=== PATIENT | female | born 1980 | race Caucasian/White ===

== ENCOUNTER 2016-11-02 07:05 | Emergency (ER) | payer BC ==
[~2016-11-02] VITALS: Ht 172.7 cm; Wt 61.5 kg
[~2016-11-02 07:05] MED LIST: ADVIN10/60 INH; ALBUAER2 INH; MTR600X PO; PRENTAB26 PO
[2016-11-02 07:08] VITALS: Ht 172.7 cm; Wt 61.5 kg
[2016-11-02] MEDS ORDERED: MoRPHine SULFATE 10 MG/ML CARP/VIAL IV STA (07:30)
[2016-11-02] MEDS ORDERED: MoRPHine SULFATE 4 MG/ML 1 ML CARP\\VIAL IV PRN (07:30)
[2016-11-02] MEDS ORDERED: SODIUM CHLORIDE 0.9% 1000ML 1,000 ML IV STA (07:30)
[2016-11-02] MEDS ORDERED: ONDANSETRON INJ 2 MG/ML 2 ML VIAL IV STA ×2 (07:30→09:17)
[2016-11-02 07:50] LABS: BASO % 0.2 %; BASO ABS # 0.02 K/uL (0-0.2); COMPLETE YES; EOS % 0.6 %; HEMATOCRIT 40.6 % (37-47); IG% 0.2 %; LYMPH % 17.7 %; LYMPH ABS # 2.32 K/uL (1.2-3.4); MEAN CELL VOLUME 90.4 fL (80-100); MEAN CORPUSCULAR HGB CONC 34.2 g/dl (32-36); MONO % 5.6 %; NEUT % 75.7 %; PLATELET COUNT 180 K/uL (130-400); RED BLOOD COUNT 4.49 M/uL (4.2-5.4); WHITE BLOOD COUNT 13.12 K/uL (4.8-10.8)
[2016-11-02 08:02] LABS: PARTIAL THROMBOPLASTIN RATIO 1.1; PROTHROMBIN TIME (PATIENT) 10.4 SECONDS (9.0-12.0)
[2016-11-02 08:21] LABS: BUN/CREATININE RATIO 9.3 (10-20); CREATININE 0.87 mg/dl (0.60-1.20); POTASSIUM 3.8 mmol/L (3.5-5.1)
[2016-11-02 08:24] LABS: ALB/GLOB RATIO 1.4 (0.9-2)
[2016-11-02 08:29] LABS: CALCIUM 8.9 mg/dl (8.5-10.1)
[2016-11-02 08:56] LABS: URINE APPEARANCE CLEAR (CLEAR); URINE BILIRUBIN NEG (NEG); URINE COLOR YELLOW; URINE NITRITE NEG (NEG); URINE SPECIFIC GRAVITY 1.005 (1.000-1.030); UROBILINOGEN NEG (NEG)
[2016-11-02 09:14] LABS: MANUAL MICROSCOPIC REQUIRED? NO; REVIEW REQ? NO
--- NOTE | 2016-11-02 10:17 | DIAGNOSTIC IMAGING REPORT ---
ULTRASOUND CLINICAL HISTORY: Vaginal bleeding and abdominal pain. Miscarriage. Evaluate for retained products of conception. COMPARISON STUDY: No previous studies for comparison. TECHNIQUE: Transabdominal and transvaginal sonography of the pelvis was performed. FINDINGS: The uterus measures 9.5 x 4.8 x 5.1 cm. The endometrium measures 6 mm in thickness. Note is made of a 2.1 x 1 x 1.6 cm cystic structure within the endometrium of the lower uterine segment with no yolk sac or pole identified. There are low-level echoes within this suspected gestational sac which appears abnormally positioned. The mean sac diameter is 1.58 cm corresponds to an estimated gestational age of 5 weeks and 6 days. The ovaries are sonographically normal. There is no adnexal mass. IMPRESSION: Cystic structure within the endometrium of the lower uterine segment which likely reflects an abnormally positioned gestational sac with a mean sac diameter of 1.58 cm which corresponds to an estimated gestational age of 5 weeks and 6 days. No yolk sac or pole identified. The findings remain nonspecific and could reflect a normal early intrauterine gestation. However, the findings are likely abnormal and suggest an in progress. Clinical follow-up, including serial hCG levels, is recommended. Electronically signed by: Sandoval Ruiz M.D. 11/02/2016 10:16 AM Dictated Date/Time: 11/02/2016 10:09 AM
[2016-11-02] MEDS ORDERED: HYDR-5688 PO (10:32)
[2016-11-02 11:17] VITALS: BP 104/66; PULSE 65; TEMP 36.7; O2SAT 99
--- NOTE | 2016-11-02 17:04 | EMERGENCY ROOM VISIT NOTE ---
ED Visit Note First contact with patient: 07:13 Chief Complaint: Pelvic pain and vaginal bleeding. History of Present Illness: Ms. Barrientos is a 36 year-old white female who ambulates into the ED accompanied by her mother complaining of pelvic pain and vaginal bleeding. Historically patient reports she is 4 and para 2. Her blood type is A positive. She has no EDC for her current . Patient reports she has been having central pelvic cramping and spotting for the last 3 weeks. She was seen by the [facility] DIRECTOR OF LABOR RELATIONS department on October 20 and an ultrasound showed no pole or yolk sac. A gestational sac equivalent to 6 weeks and 2 days. Normal-appearing ovaries and no significant free fluid. On November 01 a repeat ultrasound was performed at the [facility] clinic and showed an empty intrauterine gestational sac without demonstrated growth and subchorionic hemorrhaging concerning for a failed . Patient reports an acute onset of severe pelvic pain and increased vaginal bleeding since 4 AM today, approximately 4 hours ago. She describes her pain as a cramping sensation. Located in the central portion of the pelvis. She rates her discomfort 8/10. Her pain is nonradiating. She has not identified any aggravating or alleviating factors related to the pain. She has not taken any medications for pain prior to arrival at the hospital. Associated with her pain she has noted a significant increase in vaginal bleeding. She reports she has saturated 4 sanitary napkins in the last 4 hours and has passed multiple large clots. Patient denies fevers, chills, sweats, skin eruptions, skin color changes, upper respiratory tract symptoms, shortness of breath, chest pain, nausea, vomiting, diarrhea, constipation, rectal bleeding, black/tarry stools, urinary symptoms, hematuria, back/flank pain. Review of Systems: As noted above in history of present illness. All body systems were reviewed and found to be negative as noted above. Past Medical History: As noted above, asthma, COPD, gastric reflux, anxiety. Current Medications: Medications Dose Route/Sig Max Daily Dose Days Date Category Dose Instructions Fiatt 5MG/325MG (Acetaminophen/Hydrocodone Bitart) Tab 1 Tablet PO Q6H PRN 11/02/16 Rx For Initial Treatment Allergies to Medications: Sulfa. Social History: Patient feels safe in her home environment; she admits to tobacco use and denies alcohol use. Physical Examination: Vital Signs: Date Time Temp Pulse Resp B/P Pulse Ox O2 Delivery O2 Flow Rate FiO2 11/02/16 11:17 36.7 65 18 104/66 99 11/02/16 11:11 65 18 104/66 99 Room Air 11/02/16 10:58 100/61 11/02/16 10:41 57 18 79/50 100 Room Air 91/57 11/02/16 10:14 55 18 90/45 100 Room Air 11/02/16 08:35 61 18 99/59 100 Room Air 11/02/16 07:08 36.7 129 20 146/75 100 Room Air GENERAL: 36-year-old female in moderate distress due to pain, nontoxic-appearing , afebrile and hemodynamically stable. Patient is very anxious and tearful. NEUROLOGICAL: Awake, alert and oriented to person, place and time. Answering questions appropriately and following commands. Normal gait. Good hand eye coordination. SKIN: Warm, dry and pink. No soft tissue eruptions or trauma noted. HEENT: Atraumatic and normocephalic. PERRLA. Sclera white and conjunctiva pink. Oral cavity moist and pink. BACK: No tenderness over the bony spine. No CVA tenderness. THORAX: Lungs sounds are clear to auscultation and equal bilaterally with symmetrical chest wall. HEART: Regular rate and rhythm. No gallops, rubs or murmurs are appreciated. ABDOMEN: Flat, soft and nontender. Positive bowel sounds in all quadrants. No guarding, rigidity or organomegaly. PELVIC: Performed in front of a registered nurse. External genitalia is unremarkable except for dried blood. A visual inspection shows a moderate amount of blood and clots in the posterior vaginal vault. The os is open and there is minimal active bleeding. EXTREMITIES: Moves all extremities well on command and with purpose. All distal neurovascular statuses are intact and equal bilaterally. ED Course: Patient is assessed as noted above. Laboratory Testing: Test 11/02/16 07:37 11/02/16 08:25 Range/Units White Blood Count 13.12 4.8-10.8 K/uL Red Blood Count 4.49 4.2-5.4 M/uL Hemoglobin 13.9 12.0-16.0 g/dL Hematocrit 40.6 37-47 % Mean Corpuscular Volume 90.4 80-100 fL Mean Corpuscular Hemoglobin 31.0 25-34 pg Mean Corpuscular Hemoglobin Concent 34.2 32-36 g/dl Platelet Count 180 130-400 K/uL Mean Platelet Volume 11.0 7.4-10.4 fL Neutrophils (%) (Auto) 75.7 % Lymphocytes (%) (Auto) 17.7 % Monocytes (%) (Auto) 5.6 % Eosinophils (%) (Auto) 0.6 % Basophils (%) (Auto) 0.2 % Neutrophils # (Auto) 9.94 1.4-6.5 K/uL Lymphocytes # (Auto) 2.32 1.2-3.4 K/uL Monocytes # (Auto) 0.73 0.11-0.59 K/uL Eosinophils # (Auto) 0.08 0-0.5 K/uL Basophils # (Auto) 0.02 0-0.2 K/uL RDW Standard Deviation 41.7 36.4-46.3 fL RDW Coefficient of Variation 12.5 11.5-14.5 % Immature Granulocyte % (Auto) 0.2 % Immature Granulocyte # (Auto) 0.03 0.00-0.02 K/uL Prothrombin Time 10.4 9.0-12.0 SECONDS Prothromb Time International Ratio 1.0 0.9-1.1 Activated Partial Thromboplast Time 27.8 21.0-31.0 SECONDS Partial Thromboplastin Ratio 1.1 Sodium Level 142 136-145 mmol/L Potassium Level 3.8 3.5-5.1 mmol/L Chloride Level 109 98-107 mmol/L Carbon Dioxide Level 25 21-32 mmol/L Anion Gap 8.0 3-11 mmol/L Blood Urea Nitrogen 8 7-18 mg/dl Creatinine 0.87 0.60-1.20 mg/dl Est Creatinine Clear Calc Drug Dose 87.6 ml/min Estimated GFR () 100.0 Estimated GFR (Non- 86.3 BUN/Creatinine Ratio 9.3 10-20 Random Glucose 95 70-99 mg/dl Calcium Level 8.9 8.5-10.1 mg/dl Total Bilirubin 0.5 0.2-1 mg/dl Aspartate Amino Transf (AST/SGOT) 11 15-37 U/L Alanine Aminotransferase (ALT/SGPT) 12 12-78 U/L Alkaline Phosphatase 67 45-117 U/L Total Protein 6.8 6.4-8.2 gm/dl Albumin 4.0 3.4-5.0 gm/dl Globulin 2.8 2.5-4.0 gm/dl Albumin/Globulin Ratio 1.4 0.9-2 Human Chorionic Gonadotropin, Quant 6205 mIU/mL Urine Color YELLOW Urine Appearance CLEAR CLEAR Urine pH 7.0 4.5-7.5 Urine Specific [place] 1.005 1.000-1.030 Urine Protein NEG NEG Urine Glucose (UA) NEG NEG Urine Ketones NEG NEG Urine Occult Blood 3+ NEG Urine Nitrite NEG NEG Urine Bilirubin NEG NEG Urine Urobilinogen NEG NEG Urine Leukocyte Esterase NEG NEG Urine WBC (Auto) 0 0-5 /hpf Urine RBC (Auto) >30 0-4 /hpf Urine Hyaline Casts (Auto) 0 0-5 /lpf Urine Epithelial Cells (Auto) 5-10 0-5 /lpf Urine Bacteria (Auto) NEG NEG Ultrasound: Was reviewed by myself and read by the radiologist showing a cystic structure within the endometrium of the lower uterine segment. There was no yolk sac or pole identified. Patient was hydrated with normal saline and she initially received 6 mg of morphine IV and 4 mg of Zofran IV for her symptoms. Patient was reassessed multiple times during her stay in the emergency department. Just prior to her ultrasound patient was given 4 mg of morphine IV for pain and 4 mg of Zofran IV for nausea. Patient's case was reviewed with Dr. Keating; we agreed on diagnostic approach, treatment, disposition and plan. Patient's case was consult with Dr. Joshua [facility] DIRECTOR OF LABOR RELATIONS; he recommended ultrasound to identify endometrium thickness and any retained products an office follow-up tomorrow. A second liter of normal saline was given to the patient because of mild decrease in her blood pressure. Patient was educated about tonight's findings and instructed on her treatment plan; she verbalizes understanding and agreement with this plan. Clinical Impression: Spontaneous . Disposition: Patient discharged home in stable condition accompanied by her ; prior to departure she was reassessed and subjectively reported she was feeling much better and rated her discomfort 2/10. Plan: Patient was placed on a sliding pain medication scale of ibuprofen, acetaminophen and Fiatt; appropriate precautions were discussed concerning the use of narcotics. Patient was encouraged to keep her upcoming appointment with DIRECTOR OF LABOR RELATIONS tomorrow for further evaluation and care. Patient was encouraged to follow-up with personal physician for recheck in 1-2 days. Patient was encouraged return the ED for worsening symptoms, fevers, or any new/ concerning symptoms.
[2016-11-03] MEDS ORDERED: VNTHFA/IN INH (09:15)
[2016-11-03] MEDS ORDERED: HYDR-5688 PO (09:28)
== END 2016-11-02 11:18 | disposition home or self-care (01) ==
LOC: C.EDB 07:07 → C.EDA 11:18
DX: O03.9 Complete or unspecified spontaneous abortion without complication (principal); J45.909 Unspecified asthma, uncomplicated; K21.9 Gastro-esophageal reflux disease without esophagitis; F41.9 Anxiety disorder, unspecified

== ENCOUNTER 2019-01-01 01:28 | Inpatient (IN) ==
[2019-01-01] MEDS ORDERED: OXYTOCIN 30 UNITS/500 ML BAG IV PRN ×2 (02:09→13:22)
[2019-01-01] MEDS: LACTATED RINGER'S 1,000 ML IV PRN ×3 (02:10→10:49)
--- NOTE | 2019-01-01 02:13 | Labor Progress Brief Note ---
Date of Service January 01, 2019 Subjective Current Pain Level(1-10): 9 Patient returns from home with duvall still in place, quintin Q3-6, pain 9/10 and requesting epidural. After arrival to L&D, duvall did fall out while patient in room 3. No LOF. Small bloody show. +FM. Assessment & Plan (1) Post-dates : Duvall out, cervix ripe, patient requesting epidural. Will hold off on pitocin/AROM until epidural provided given patient request. Post-term type: 40-42 weeks gestation Qualified Code(s): O48.0 - Post-term Present on Admission?: Yes Physical Exam Genitourinary: OB Exam Abdomen: + regular contractions (Q3-6min) Manual OB Exam: + cervical dilation 5 cm, + cervical effacement 80% and + station -2 OB Exam Monitor Tracing: + external FHT monitor used and + external uterine monitor used Results & Data Vital Signs (Past 12 Hours) Vital Signs Pulse Resp BP 01/01/19 01:38 18 01/01/19 01:33 85 122/86
[2019-01-01 02:26] LABS: Hematocrit (blood only) 34.8 % (37-47); Hemoglobin 11.6 g/dL (12.0-16.0); Mean Corpuscular Volume 90.9 fL (80-100); Mean Platelet Volume 12.1 fL (7.4-10.4); Platelet Count 194 K/uL (130-400); RDW Coefficient of Variation 13.4 % (11.5-14.5); RDW Standard Deviation 44.2 fL (36.4-46.3); Red Blood Count 3.83 M/uL (4.2-5.4); White Blood Count 18.23 K/uL (4.8-10.8)
[2019-01-01] MEDS ORDERED: ePHEDrine sulfate 50 MG/ML AMP ONE (02:34)
[2019-01-01] MEDS ORDERED: BUPIVACAINE 0.25% 30 ML VIAL ONE (02:34)
[2019-01-01] MEDS ORDERED: fentaNYL citrate 100 MCG/2 ML VIAL ONE (02:35)
[2019-01-01] MEDS ORDERED: fentaNYL 2MCG/ML ROPIV 1.25MG/ML 100 ML BAG EPI ONE (02:35)
[2019-01-01 02:38] LABS: Mean Corpuscular Hgb Conc 33.3 g/dL (32-36)
--- NOTE | 2019-01-01 02:45 | Anesthesiology Consultation ---
Date of Service January 01, 2019 Assessment & Plan (1) Term : Chart Review Chart Review: Acceptable Risk for Labor Epidural History Height/Weight Height: 5 ft 8 in Weight: 71.668 kg Allergies Allergy/AdvReac Type Severity Reaction Status Date / Time Sulfa (Sulfonamide Allergy Intermediate HIVES Verified 12/31/18 19:36 Antibiotics) Medications Home Medications Medication Instructions Recorded Confirmed Last Taken PNV cmb#95-ferrous fumarate-FA 1 tab PO DAILY 12/25/18 12/31/18 12/31/18 08:00 [] albuterol sulfate [ProAir HFA] 2 puff INHALATION AMPM PRN 12/25/18 12/31/18 12/22/18 Past Medical History Medical History Asthma (Chronic) with 39 completed weeks gestation Uterine contractions Past Family History Family History Grandfather (Maternal) Myocardial infarction Past Surgical History Surgical History History of tooth extraction Social History Smoking Status: Current some day smoker tobacco type: cigarettes Smoking cigarettes per day: 6 Do You Dip or Chew Tobacco: No Hx Alcohol Use: No Hx Substance Use: No substance use type: does not use Physical Exam Vital Signs Last Vital Signs Pulse 74 01/01/19 02:39 Resp 18 01/01/19 01:38 BP 122/86 01/01/19 01:33 Pulse Ox 95 01/01/19 02:39 Testing Laboratory Results 01/01/19 02:16
[2019-01-01] MEDS ORDERED: NALOXONE HCL 0.4 MG/1 ML VIAL/CARP IV PRN (03:26)
[2019-01-01] MEDS ORDERED: ONDANSETRON INJ 2 MG/ML 2 ML VIAL IV PRN (03:26)
[2019-01-01] MEDS ORDERED: NALOXONE HCL 1 MG in SODIUM CHLORIDE 0.9% 1000ML 1,000 ML IV PRN (03:26)
[2019-01-01] MEDS ORDERED: fentaNYL 2MCG/ML ROPIV 1.25MG/ML 100 ML BAG EPI PRN (03:26)
[2019-01-01] MEDS: ePHEDrine sulfate 50 MG/ML AMP IV PRN ×2 (03:35→03:40)
--- NOTE | 2019-01-01 07:14 | Labor Progress Brief Note ---
Date of Service January 01, 2019 Subjective Reason For Note: Routine Evaluation Comfortable with Epidural Assessment & Plan (1) Post-dates : Patient has made significant cervical change without pitocin, and at this point I am not sure it's needed. AROM completed. Will see if change continues and can add pitocin if not. Post-term type: 40-42 weeks gestation Qualified Code(s): O48.0 - Post-term Present on Admission?: Yes Physical Exam Genitourinary: Manual OB Exam: + cervical dilation 8 cm, + cervical effacement 90%, + station 0 and + amniotic fluid (AROM complete, head very well applied, no visible fluid drainage.) OB Exam Monitor Tracing: + external uterine monitor used (Q6min. Pitocin was not started despite order; progress ongoing anyway.) and + category I Results & Data Vital Signs (Past 12 Hours) Vital Signs Temp Pulse Resp BP Pulse Ox 01/01/19 07:04 78 100 01/01/19 06:59 82 107/60 100 01/01/19 06:54 77 100 01/01/19 06:49 73 100 01/01/19 06:44 75 106/60 100 01/01/19 06:39 79 100 01/01/19 06:34 81 100 01/01/19 06:29 74 101/57 L 100 01/01/19 06:24 76 100 01/01/19 06:19 74 100 01/01/19 06:14 79 108/61 100 01/01/19 06:09 76 100 01/01/19 06:04 80 100 01/01/19 06:00 18 01/01/19 05:59 74 106/58 L 100 01/01/19 05:54 76 100 01/01/19 05:49 79 100 01/01/19 05:44 82 105/60 100 01/01/19 05:39 79 97 01/01/19 05:34 76 100 01/01/19 05:31 18 01/01/19 05:30 74 107/55 L 01/01/19 05:29 77 100 01/01/19 05:24 81 100 01/01/19 05:19 85 99 01/01/19 05:14 74 110/60 99 01/01/19 05:09 80 98 01/01/19 05:04 74 99 01/01/19 04:59 77 110/61 99 01/01/19 04:54 73 99 01/01/19 04:49 77 99 01/01/19 04:44 87 102/59 L 100 01/01/19 04:39 69 99 01/01/19 04:34 77 99 01/01/19 04:29 78 108/60 99 01/01/19 04:24 81 100 01/01/19 04:19 69 98 01/01/19 04:15 68 111/60 01/01/19 04:14 69 99 01/01/19 04:09 77 99 01/01/19 04:04 81 98 01/01/19 04:00 16 01/01/19 03:59 82 98 01/01/19 03:58 72 115/58 L 01/01/19 03:56 87 105/59 L 01/01/19 03:54 90 109/61 100 01/01/19 03:52 80 114/61 01/01/19 03:51 73 94 01/01/19 03:50 94 H 109/59 L 01/01/19 03:49 89 97 01/01/19 03:48 71 115/63 01/01/19 03:46 96 H 109/56 L 01/01/19 03:45 18 01/01/19 03:44 88 116/63 94 01/01/19 03:43 76 94 01/01/19 03:41 76 114/69 01/01/19 03:40 79 20 110/64 01/01/19 03:39 74 108/61 98 01/01/19 03:38 102 H 88/50 L 01/01/19 03:37 86 89/51 L 01/01/19 03:36 73 90/55 L 01/01/19 03:35 80 20 67/39 L 01/01/19 03:34 94 H 100 01/01/19 03:30 36.4 C L 18 01/01/19 03:29 103 H 97 01/01/19 03:28 86 98/58 L 01/01/19 03:26 85 99/60 L 01/01/19 03:25 18 01/01/19 03:24 84 99/58 L 96 01/01/19 03:22 80 106/66 01/01/19 03:20 82 18 100/63 06/26/19 03:19 77 96 01/01/19 03:18 68 104/65 01/01/19 03:16 77 112/61 01/01/19 03:14 83 97 01/01/19 03:09 86 99 01/01/19 03:04 81 99 01/01/19 02:59 90 100 01/01/19 02:54 83 100 01/01/19 02:49 72 100 01/01/19 02:44 78 93 01/01/19 02:39 74 95 01/01/19 02:00 36.8 C 18 01/01/19 01:38 18 01/01/19 01:33 85 122/86
[2019-01-01] MEDS: OXYTOCIN 30 UNITS/500 ML BAG IV PRN ×2 (12:17→13:00)
[2019-01-01] MEDS ORDERED: OXYCODONE/ACETAMINOPHEN 5mg/325mg TAB PO PRN (12:59)
[2019-01-01 13:15] LABS: Hematocrit (blood only) 32.2 % (37-47); Hemoglobin 10.7 g/dL (12.0-16.0)
[2019-01-01] MEDS: IBUPROFEN 600 MG TAB PO PRN ×2 (13:16→19:32)
[2019-01-01] MEDS ORDERED: DIPHTHERIA/TETANUS/PERTUSSIS 0.5 ML SYR/VIAL IM ONE (13:22)
[2019-01-01] MEDS ORDERED: BENZOCAINE 20% AER SPR 82.5 GM CAN EXT PRN (13:22)
[2019-01-01] MEDS ORDERED: HYDROCORTISONE ACETATE 25 MG SUPP PR PRN (13:22)
[2019-01-01] MEDS ORDERED: SUPERCREAM 0.870% 15 GM JAR EXT PRN (13:22)
[2019-01-01] MEDS ORDERED: ALBUTEROL HFA 8 GM INHALER INH PRN (13:30)
--- NOTE | 2019-01-01 14:22 | Anesthesia Procedure Note ---
Date of Service January 01, 2019 Anesthesia Post Epidural Note Vital Signs Vital Signs: Temp Pulse Resp BP Pulse Ox 36.5 C 76 18 115/61 97 01/01/19 13:30 01/01/19 14:14 01/01/19 13:30 01/01/19 14:14 01/01/19 11:44 Pain Intensity Lower Back: Pain Intensity: 8 Notes Mental Status: alert / awake / arousable Nausea / Vomiting: adequately controlled Pain: adequately controlled Airway Patency, RR, SpO2: stable & adequate BP & HR: stable & adequate Hydration State: stable & adequate Neuraxial Anesthesia: was administered and sensory block is resolving Anesthetic Complications: no major complications apparent and Pt Satisfied with anesthetic care Epidural: Removed without complications and With tip intact
[2019-01-01] MEDS: ACETAMINOPHEN 325 MG TAB PO PRN ×2 (14:52→19:33)
--- NOTE | 2019-01-01 15:46 | Procedure Note ---
Vaginal Delivery Summary Date of Service January 01, 2019 Vaginal Delivery Summary Vaginal Delivery Summary: Pre-delivery diagnoses: 38yo @ 40 /, IOL for post dates , advanced maternal age Post-delivery diagnoses: same + hemorrhage Procedure: spontaneous vaginal delivery, repair of right sulcal and midline vaginal lacerations, repair of 2nd degree perineal laceration, insertion of Bakri balloon Surgeon: Lucy Concepcion DO Complications: hemorrhage Findings: Viable . Apgars: 8/9 . Weight pending, please see nursery records Estimated blood loss: 700ml Description of delivery: The patient progressed to complete with epidural anesthesia. She then began to push. She spontaneously vaginally delivered a viable female from the cephalic presentation. The head delivered in KIRSTEN position. The anterior shoulder delivered, followed by the posterior shoulder, followed by the body. The baby was placed on mother's abdomen and a spontaneous cry was heard. Delayed cord clamping was employed, and the cord was doubly clamped and cut. Cord blood was obtained. The placenta was delivered spontaneously intact with a 3-vessel cord. The uterus and vagina were swept of clots and debris. IV pitocin was given. The uterus became firm. The cervix, vagina, and perineum were inspected. A right vaginal sulcul and midline vaginal laceration were noted, along with a 2nd degree perineal laceration. Multiple sutures of 3-0 vicryl were used in an attempt to obtain hemostasis of the vaginal sulcal and midline vaginal tears. Every time another suture was cinched, the tissue tore. The tissue was very friable and did not hold sutures well at all. This caused approx 700ml total EBL. Ultimately, after multiple [id number] and running sutures, a Bakri balloon was placed and inflated to 500cc sterile saline in the vagina to tamponade the tissue. This did obtain hemostasis. Uterus was firm throughout. The 2nd degree perineal laceration was repaired, and 2 Raytec sponges were left in the vagina distal to the Bakri balloon for additional tamponade pressure. No further bleeding was observed. Excellent hemostasis was observed. Hemoglobin checked after repair was 10.7 (down from 11.6). Vitals stable. Will plan to remove the 2 sponges and Bakri balloon tomorrow morning. Kohler catheter was placed to aid in bladder drainage during Bakri. Rectal exam showed no sutures or lacerations in rectum. Will continue to monitor patient closely and recheck H/H in 6h. The mother and baby are recovering in stable and good condition in the room. Sponge, needle and instrument counts were correct x 2. Note completed late due to direct patient care of other patients. DO FELY Fall
[2019-01-01 18:35] LABS: Hematocrit (blood only) 29.6 % (37-47)
--- NOTE | 2019-01-01 20:48 | Obstetrical Progress Note ---
Date of Service January 01, 2019 Subjective Late note, as I was participating in direct patient care and unable to sit in the computer. Patient was reevaluated, her vital signs are stable. Her repeat hemoglobin and hematocrit was 10.0 and 29.6. She has had minimal bleeding. The fundus is firm. There is no output from the Bakri balloon. She is feeling well, is hungry, is asking for dinner. Okay for changing to regular diet. We will continue to closely monitor. Results & Data Vital Signs (Past 12 Hours) Vital Signs Temp Pulse Resp BP Pulse Ox 01/01/19 20:25 66 103/63 01/01/19 19:14 56 L 105/58 L 01/01/19 18:59 60 101/57 L 01/01/19 18:44 62 112/61 01/01/19 18:30 18 01/01/19 18:29 64 106/56 L 01/01/19 18:14 68 107/62 01/01/19 18:03 67 109/64 01/01/19 17:44 66 92/55 L 01/01/19 17:29 64 106/59 L 01/01/19 17:14 76 104/61 01/01/19 17:00 16 01/01/19 16:59 72 108/70 01/01/19 16:44 70 100/67 01/01/19 16:29 67 107/65 01/01/19 16:14 62 106/63 01/01/19 15:59 60 107/68 01/01/19 15:55 18 01/01/19 15:44 62 108/69 01/01/19 15:29 67 109/63 01/01/19 15:14 71 105/61 01/01/19 15:00 36.4 C L 18 01/01/19 14:59 68 104/57 L 01/01/19 14:44 81 114/65 01/01/19 14:30 20 01/01/19 14:29 74 111/63 01/01/19 14:14 76 115/61 01/01/19 13:59 79 114/80 01/01/19 13:44 105 H 115/69 01/01/19 13:30 36.5 C 18 01/01/19 13:29 69 110/61 01/01/19 13:15 69 110/61 01/01/19 13:14 81 111/58 L 01/01/19 12:59 65 113/57 L 01/01/19 12:50 69 110/61 01/01/19 12:30 36.9 C 18 01/01/19 12:29 70 121/59 L 01/01/19 12:14 77 112/71 01/01/19 12:04 36.5 C 18 01/01/19 11:59 75 110/61 01/01/19 11:47 88 112/81 01/01/19 11:44 96 H 89/50 L 97 01/01/19 11:43 90 93 01/01/19 11:39 97 H 94 01/01/19 11:37 95 H 86 L 01/01/19 11:34 104 H 93 01/01/19 11:32 117 H 90 01/01/19 11:29 89 110/58 L 100 01/01/19 11:25 120 H 83 L 01/01/19 11:24 90 100 01/01/19 11:19 91 H 94 01/01/19 11:14 104 H 118/90 100 01/01/19 11:09 92 H 100 01/01/19 11:04 92 H 100 01/01/19 10:59 86 18 96/51 L 100 01/01/19 10:54 82 100 01/01/19 10:49 75 100 01/01/19 10:45 36.9 C 75 18 100/59 L 01/01/19 10:44 81 100 01/01/19 10:39 72 99 01/01/19 10:34 74 99 01/01/19 10:30 69 102/58 L 01/01/19 10:29 75 99 01/01/19 10:24 82 98 01/01/19 10:19 68 100 01/01/19 10:14 78 100/59 L 98 01/01/19 10:09 77 99 01/01/19 10:04 77 98 01/01/19 10:00 73 106/59 L 01/01/19 09:59 71 100 01/01/19 09:54 74 100 01/01/19 09:49 79 100 01/01/19 09:44 81 105/59 L 100 01/01/19 09:39 82 100 01/01/19 09:34 74 100 06/26/19 09:30 78 109/59 L 01/01/19 09:29 78 100 01/01/19 09:24 86 100 01/01/19 09:19 87 100 01/01/19 09:16 79 18 105/56 L 01/01/19 09:14 77 99 01/01/19 09:09 82 99 01/01/19 09:05 36.9 C 18 01/01/19 09:04 79 99 01/01/19 08:59 85 104/58 L 100 01/01/19 08:54 78 100 01/01/19 08:49 81 100
[2019-01-01] MEDS: DOCUSATE SODIUM 100 MG CAP PO SCH (21:00)
[2019-01-02] MEDS: ACETAMINOPHEN 325 MG TAB PO PRN (02:30)
[2019-01-02] MEDS: IBUPROFEN 600 MG TAB PO PRN ×3 (05:30→17:31)
--- NOTE | 2019-01-02 06:36 | Obstetrical Progress Note ---
Date of Service <Jerome Panchal DO - Last Filed: 01/02/19 06:38> January 02, 2019 Assessment & Plan <Jerome Panchal DO - Last Filed: 01/02/19 06:38> (1) (spontaneous vaginal delivery): -vital signs reviewed and WNL -last Hgb 10.0 --> ferrous sulfate -Blood type: A+, GBS-, Rubella Immune -pt doing well clinically -encourage ambulation, monitor and control pain with motrin tylenol, cont regular diet, monitor lochia -cont encourage bottle feeding Subjective <Jerome Panchal, DO - Last Filed: 01/02/19 06:38> 38 y/o PPD1 found in bed this morning in NAD. Reports no acute overnight events. Pt states that she has little pain in bottom, 5-6/10 sharp in nature and worse with movement. Improved somewhat with pain meds. Thinks it might be related to balloon/duvall. Otherwise appropriate soreness. Tolerating PO intake without N/V. She is bottle feeding without issue. No issues with voiding, duvall in place. No BM yet but passing gas. No other acute concerns or complaints. Review of Systems All systems reviewed & are unremarkable except as noted in HPI & below Physical Exam <Jerome Panchal, - Last Filed: 01/02/19 06:38> Constitutional WD/WN, vitals as above Respiratory normal respiratory effort, lungs clear to auscultation Cardiovascular RRR, no murmur, no edema Gastrointestinal (Abdomen) mild abd tenderness Fundus one below U, please correlate with attending findings Skin no rashes, warm and dry Psychiatric A+Ox3, euthymic affect Lymphatic no LE swelling, no calf tenderness Results & Data <Jerome Panchal, - Last Filed: 01/02/19 06:38> Vital Signs (Past 12 Hours) Vital Signs Temp Pulse Pulse Resp BP BP Pulse Ox 01/02/19 03:44 36.4 C L 60 18 101/55 L 01/02/19 03:30 60 101/55 L 01/02/19 00:11 68 107/56 L 01/02/19 00:00 36.6 C 68 20 107/56 L 98 01/01/19 20:25 66 103/63 01/01/19 20:00 36.8 C 70 18 121/64 99 01/01/19 19:14 56 L 105/58 L 01/01/19 18:59 60 101/57 L 01/01/19 18:44 62 112/61 Laboratory Results Laboratory Results - last 24 hr 01/01/19 01/01/19 01/02/19 13:05 18:00 06:21 WBC Pending RBC Pending Hgb 10.7 L 10.0 L Pending Hct 32.2 L 29.6 L Pending MCV Pending MCH Pending MCHC Pending Plt Count Pending Medications Administered Current Inpatient Medications Acetaminophen (Tylenol) 650 mg PO Q6H PRN PRN Reason: Pain/GÓMEZ/Fever Stop: 01/31/19 12:58 Last Admin: 01/02/19 02:30 Dose: 650 mg Documented by: Albuterol (Ventolin Hfa) 2 puffs INH BID PRN PRN Reason: SOB/WHEEZING Stop: 01/31/19 13:29 Benzocaine (Dermoplast Pain Relieving [place]) 1 appln EXT PRN PRN PRN Reason: Perineal Discomfort Stop: 01/31/19 13:21 Last Admin: 01/01/19 19:34 Dose: 82.5 appln Documented by: Bisacodyl (Dulcolax) 5 mg PO 1999 [facility] Stop: 01/02/19 20:01 Bisacodyl (Dulcolax) 10 mg [place] DAILY PRN PRN Reason: No BM on 2nd post- day Stop: 01/03/19 23:59 Cocaine HCl (Supercream 0.870%) 1 gm EXT BID PRN PRN Reason: Hemorrhoidal Inflammation Stop: 01/15/19 13:21 Docusate Sodium (Colace) 100 mg PO BID [facility] Stop: 01/31/19 20:59 Last Admin: 01/01/19 21:00 Dose: 100 mg Documented by: Hydrocortisone (Anusol Hc) 25 mg [place] BID PRN PRN Reason: Hemorrhoidal Inflammation Stop: 01/31/19 13:21 Oxytocin (Pitocin) 30 units in 500 mls @ 333.333 mls/hr IV .Q1H30M PRN; Protocol PRN Reason: Bleeding Control Stop: 01/31/19 13:21 Ibuprofen (Motrin) 600 mg PO Q4H PRN PRN Reason: Pain/GÓMEZ/Cramping/Fever Stop: 01/31/19 12:58 Last Admin: 01/02/19 05:30 Dose: 600 mg Documented by: Oxycodone/Acetaminophen (Percocet 5mg/325mg) 1 tab PO Q4H PRN PRN Reason: Pain not relieved by... Stop: 01/15/19 12:58 Prenat Multivit/Backend Developer/Iron/Folic Ac ( Vitamin) 1 tab PO QAM [place] Stop: 02/01/19 08:59 <Lucy Concepcion DO - Last Filed: 01/02/19 07:34> Co-Signing Physician Notes Resident Physician Supervision Note: I interviewed and examined the patient. Discussed with Dr. Panchal and agree with findings and plan as documented in the note. Any exceptions or clarifications are listed here: PPD#1 doing well. Routine care. Documented By: Lucy Concepcion DO Resident Activity Tracking <Jerome Panchal DO - Last Filed: 01/02/19 06:38> Resident Involvement: Resident Care Provided Care Provided: OB Delivery
[2019-01-02 06:42] LABS: Hematocrit (blood only) 30.5 % (37-47); Hemoglobin 10.1 g/dL (12.0-16.0); Mean Corpuscular Hgb Conc 33.1 g/dL (32-36); Mean Corpuscular Volume 92.7 fL (80-100); Mean Platelet Volume 11.7 fL (7.4-10.4); Platelet Count 173 K/uL (130-400); RDW Coefficient of Variation 13.9 % (11.5-14.5); RDW Standard Deviation 46.9 fL (36.4-46.3); Red Blood Count 3.29 M/uL (4.2-5.4); White Blood Count 20.27 K/uL (4.8-10.8)
--- NOTE | 2019-01-02 08:43 | Obstetrical Progress Note ---
Date of Service January 02, 2019 Subjective Vitals have been stable overnight. Patient feeling sore but well. H/H stable. Bakri balloon - removed 200cc fluid and the 2 Raytec sponges. Good hemostasis. Then, 40 minutes later removed remainder of fluid and Bakri balloon. Minimal bleeding. Will keep duvall catheter in place for the next 30 minutes. If no bleeding, then will remove duvall catheter and allow patient to get up to bathe. Results & Data Vital Signs (Past 12 Hours) Vital Signs Temp Pulse Pulse Resp BP BP Pulse Ox 01/02/19 07:12 36.6 C 20 01/02/19 07:11 60 103/58 L 01/02/19 03:44 36.4 C L 60 18 101/55 L 01/02/19 03:30 60 101/55 L 01/02/19 00:11 68 107/56 L 01/02/19 00:00 36.6 C 68 20 107/56 L 98
[2019-01-02] MEDS: DOCUSATE SODIUM 100 MG CAP PO SCH ×2 (10:42→20:19)
[2019-01-02] MEDS: FERROUS SULFATE 325 MG TAB PO SCH (10:42)
[2019-01-02] MEDS: PRENATAL VITAMIN 1 TAB PO SCH (10:42)
[2019-01-02] MEDS ORDERED: BISACODYL 5 MG TABEC PO SCH (20:00)
[2019-01-03] MEDS ORDERED: BISACODYL 10 MG SUPP PR PRN (06:00)
--- NOTE | 2019-01-03 07:09 | Obstetrical Progress Note ---
Date of Service <Jerome Mary Panchal DO - Last Filed: 01/03/19 07:09> January 03, 2019 Assessment & Plan <Jerome CNikki Panchal DO - Last Filed: 01/03/19 07:09> (1) (spontaneous vaginal delivery): -vital signs reviewed and WNL -last Hgb 10.1 --> ferrous sulfate -Blood type: A+, GBS-, Rubella Immune -pt doing well clinically -encourage ambulation, monitor and control pain with motrin tylenol, cont regular diet, monitor lochia -cont encourage bottle feeding -plan for d/c today Subjective <Jeromeajay Panchal DO - Last Filed: 01/03/19 07:09> 38 y/o PPD2 found in bed this morning in NAD. Reports no acute overnight events. Pt states that she has no pain other than appropriate soreness. Tolerating PO intake without N/V. Able to ambulate without issue. She is bottle feeding without issue. No issues with voiding, no BM yet. No other acute concerns or complaints. Pt ok with plan for d/c today. Review of Systems All systems reviewed & are unremarkable except as noted in HPI & below Physical Exam <Jeromefiona Panchal, DO - Last Filed: 01/03/19 07:09> Constitutional WD/WN, vitals as above Respiratory normal respiratory effort, lungs clear to auscultation Cardiovascular RRR, no murmur, no edema Gastrointestinal (Abdomen) mild abd tenderness Fundus one below U, correlate with attending findings Skin no rashes, warm and dry Psychiatric A+Ox3, euthymic affect Lymphatic no LE swelling, no calf tenderness Results & Data <Jeromeajay Panchal DO - Last Filed: 01/03/19 07:09> Vital Signs (Past 12 Hours) Vital Signs Temp Pulse Resp BP Pulse Ox 01/02/19 23:20 36.5 C 73 18 105/67 96 Medications Administered Current Inpatient Medications Acetaminophen (Tylenol) 650 mg PO Q6H PRN PRN Reason: Pain/GÓMEZ/Fever Stop: 01/31/19 12:58 Last Admin: 01/02/19 02:30 Dose: 650 mg Documented by: Albuterol (Ventolin Hfa) 2 puffs INH BID PRN PRN Reason: SOB/WHEEZING Stop: 01/31/19 13:29 Benzocaine (Dermoplast Pain Relieving [place]) 1 appln EXT PRN PRN PRN Reason: Perineal Discomfort Stop: 01/31/19 13:21 Last Admin: 01/01/19 19:34 Dose: 82.5 appln Documented by: Bisacodyl (Dulcolax) 10 mg [place] DAILY PRN PRN Reason: No BM on 2nd post- day Stop: 01/03/19 23:59 Cocaine HCl (Supercream 0.870%) 1 gm EXT BID PRN PRN Reason: Hemorrhoidal Inflammation Stop: 01/15/19 13:21 Docusate Sodium (Colace) 100 mg PO BID [facility] Stop: 01/31/19 20:59 Last Admin: 01/02/19 20:19 Dose: 100 mg Documented by: Ferrous Sulfate (Feosol) [facility] Stop: 02/01/19 08:59 Last Admin: 01/02/19 10:42 Dose: 325 mg Documented by: Hydrocortisone (Anusol Hc) 25 mg [place] BID PRN PRN Reason: Hemorrhoidal Inflammation Stop: 01/31/19 13:21 Oxytocin (Pitocin) 30 units in 500 mls @ 333.333 mls/hr IV .Q1H30M PRN; Protocol PRN Reason: Bleeding Control Stop: 01/31/19 13:21 Ibuprofen (Motrin) 600 mg PO Q4H PRN PRN Reason: Pain/GÓMEZ/Cramping/Fever Stop: 01/31/19 12:58 Last Admin: 01/02/19 17:31 Dose: 600 mg Documented by: Oxycodone/Acetaminophen (Percocet 5mg/325mg) 1 tab PO Q4H PRN PRN Reason: Pain not relieved by... Stop: 01/15/19 12:58 Prenat Multivit/[place]/Iron/Folic Ac ( Vitamin) 1 tab PO QAM [facility] Stop: 02/01/19 08:59 Last Admin: 01/02/19 10:42 Dose: 1 tab Documented by: <Jacquelin Jauregui MD, FACOG - Last Filed: 01/03/19 07:52> Co-Signing Physician Notes Resident Physician Supervision Note: I interviewed and examined the patient. Discussed with Dr. Shar Panchal and agree with findings and plan as documented in the note. Any exceptions or clarifications are listed here: [None] Documented By: Jacquelin Jaurgeui MD, FACOG Resident Activity Tracking <Jerome Panchal, DO - Last Filed: 01/03/19 07:09> Resident Involvement: Resident Care Provided Care Provided: OB Delivery
[2019-01-03] MEDS: ACETAMINOPHEN 325 MG TAB PO PRN (07:14)
[2019-01-03 07:15] LABS: Hematocrit (blood only) 29.8 % (37-47); Hemoglobin 9.9 g/dL (12.0-16.0)
[2019-01-03] MEDS: FERROUS SULFATE 325 MG TAB PO SCH (08:15)
[2019-01-03] MEDS: DOCUSATE SODIUM 100 MG CAP PO SCH (08:15)
[2019-01-03] MEDS: PRENATAL VITAMIN 1 TAB PO SCH (08:15)
== END 2019-01-03 14:40 | disposition home or self-care (01) | DRG 807 ==
LOC: OPB 01:28 → EDSTATUS 01:28 → 4S1 01:30 → 4S2 01-02 09:30